=== PATIENT | male | born 1945 | race Caucasian/White ===

== ENCOUNTER 2017-07-19 07:18 | Inpatient (IN) | payer MEDICARE, BC ==
[2017-07-19] MEDS ORDERED: Ondansetron 4 MG Tab.DIS PO ONE (07:57)
--- NOTE | 2017-07-19 08:03 | EDM.PDOC ---
ED HPI GENERAL MEDICAL PROBLEM - General Chief Complaint: General Stated Complaint: WEAK, HIGH BLOOD SUGAR THIS AM Time Seen by Provider: 07/19/17 07:45 Source of Information: Reports: Patient, Family, Old Records, RN History Limitations: Reports: No Limitations - History of Present Illness INITIAL COMMENTS - FREE TEXT/NARRATIVE: 72 yo male presents with a complaint of chills, feeling warm, nausea, and weakness that began about midnight. Is also dizzy without vertigo. Has not vomited or taken anything for a fever. Has a tender lump behind his L ear as his only localizing complaint. No [place], cough, abdominal pain, or dysuria. Did have nocturia x 5 last night, normally x 3. Fell without injury early this morning and it took a long time for him to be able to get up again. Onset: Today Onset Date: 07/19/17 Onset Time: 00:00 Duration: Hour(s): Location: Reports: Generalized Quality: Reports: Other (Tender lump behind the L ear. ) Severity: Mild Improves with: Reports: None Worsens with: Reports: Other (unknown) Context: Reports: Other (unknown) Associated Symptoms: Reports: Fever/Chills, Nausea/Vomiting (no vomiting), Weakness. 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: Other (see below) (none) - Related Data Allergies Allergy/AdvReac Type Severity Reaction Status Date / Time No Known Allergies Allergy Verified 07/19/17 07:23 Home Meds: Home Meds Aspirin [Children's Aspirin] 81 mg PO DAILY 01/27/15 [History] Lisinopril [Lisinopril] 10 mg PO DAILY 01/27/15 [History] [place]-3 Fatty Acids [Fish Oil] 300 mg PO DAILY 01/27/15 [History] Simvastatin [Simvastatin] 20 mg PO DAILY 01/27/15 [History] metFORMIN HCl [Metformin HCl] 1,000 mg PO BID 01/27/15 [History] Past Medical History HEENT History: Reports: Impaired Vision Cardiovascular History: Reports: High Cholesterol, Hypertension Social & Family History - Family History Family Medical History: Noncontributory - Tobacco Use Smoking Status *Q: Former Smoker Years of Tobacco use: 30 Packs/Tins Daily: 1 Used Tobacco, but Quit: Yes Month Tobacco Last Used: 10 years Second Hand Smoke Exposure: No - Caffeine Use Caffeine Use: Reports: Coffee - Alcohol Use Days Per Week of Alcohol Use: 2 Number of Drinks Per Day: 2 Total Drinks Per Week: 4 - Recreational Drug Use Recreational Drug Use: No ED ROS GENERAL - Review of Systems Review Of Systems: See Below Constitutional: Reports: Chills, Weakness. Denies: Fever HEENT: Reports: Ear Pain (behind the L ear) Respiratory: Reports: No Symptoms Cardiovascular: Reports: Lightheadedness Endocrine: Reports: High Glucose (203 glucose this am, normally runs about 120 in the morning.) GI/Abdominal: Reports: No Symptoms : Reports: Other (nocturia last night worse than normal) Musculoskeletal: Reports: No Symptoms Skin: Reports: No Symptoms Neurological: Reports: Weakness (generalized.) Psychiatric: Reports: No Symptoms ED EXAM, GENERAL - Physical Exam Exam: See Below Exam Limited By: No Limitations General Appearance: Alert, WD/WN, No Apparent Distress Eye Exam: Bilateral Eye: Normal Inspection, PERRL Ears: Normal External Exam, Hearing Loss, Other (Hearing aid in R ear today only. L auricle slightly swollen, tender lymph node behind the L auricle.) Ear Exam: Right Ear: Auricle Normal (L is slightly swollen), Canal Normal (L canal looks slightly swollen), TM normal (L TM not visible due to canal swelling ) Nose: Normal Inspection, Normal Mucosa Throat/Mouth: Normal Inspection, Normal Lips, Normal Teeth, Normal Oropharynx, Normal Voice, No Airway Compromise Head: Atraumatic, Normocephalic Neck: Normal Inspection, Supple, Non-Tender Respiratory/Chest: No Respiratory Distress, Lungs Clear, Normal Breath Sounds, No Accessory Muscle Use Cardiovascular: Regular Rate, Rhythm, No Edema GI/Abdominal: Normal Bowel Sounds, Soft, Non-Tender, No Distention Back Exam: Normal Inspection. No: CVA Tenderness (R), CVA Tenderness (L) Extremities: Normal Inspection, Normal Range of Motion, Non-Tender, No Pedal Edema Neurological: Alert, Oriented, CN II-XII Intact, Normal Cognition, No Motor/ Sensory Deficits Psychiatric: Normal Affect, Normal Mood Skin Exam: Warm, Dry, Intact, Normal Color, No Rash Lymphatic: Other (Tender lymph node behind the L auricle.) Course - Vital Signs Last Recorded V/S: Last Vital Signs Temp 37.3 C 07/19/17 08:45 Pulse 100 07/19/17 09:40 Resp 19 07/19/17 09:40 BP 111/69 07/19/17 09:40 Pulse Ox 95 07/19/17 09:40 Orthostatic Blood Pressure [ 145/84 Standing] Orthostatic Blood Pressure [ 143/76 Sitting] Orthostatic Blood Pressure [ 143/76 Supine] - Orders/Labs/Meds Orders: Active Orders 24 hr Category Date Time Status Cardiac Monitoring [RC] .As Directed Care 07/19/17 07:54 Active Orthostatic Vital Signs [RC] ASDIRECTED Care 07/19/17 07:54 Active CULTURE BLOOD [BC] Urgent Lab 07/19/17 08:55 Received CULTURE BLOOD [BC] Urgent Lab 07/19/17 09:00 Received CULTURE URINE [RM] Stat Lab 07/19/17 07:31 Received Blood Culture x2 Reflex Set [OM.PC] Urgent Oth 07/19/17 08:51 Ordered Labs: Laboratory Tests 07/19/17 07/19/17 07/19/17 Range/Units 07:31 08:04 08:04 WBC 12.3 H (4.5-12.0) X10-3/uL RBC 4.60 (4.30-5.75) x10(6)uL Hgb 14.2 (11.5-15.5) g/dL Hct 41.9 (30.0-51.3) % MCV 90.9 (80-96) fL MCH 30.8 (27.7-33.6) pg MCHC 33.8 (32.2-35.4) g/dL RDW 13.0 (11.5-15.5) % Plt Count 173 (125-369) X10(3)uL Sodium 131 L (135-145) mmol/L Potassium 4.3 (3.5-5.3) mmol/L Chloride 97 L (100-110) mmol/L Carbon Dioxide 24 (23-29) mmol/L BUN 24 H (8-23) mg/dL Creatinine 1.2 (0.6-1.3) mg/dL Est Cr Clr Drug Dosing 59.26 mL/min Estimated GFR (MDRD) 60 (>60) BUN/Creatinine Ratio 20.0 (9-20) Glucose 206 H (80-116) mg/dL Lactic Acid (0.5-2.2) mmol/L Calcium 9.0 (8.6-10.2) mg/dL Total Bilirubin 1.0 (0.1-1.3) mg/dL AST 21 (5-27) IU/L ALT 22 D (14-26) IU/L Alkaline Phosphatase 53 L (56-112) IU/L C-Reactive Protein 1.0 (0.0-1.0) mg/dL Total Protein 7.7 (6.0-8.0) g/dL Albumin 4.4 (3.2-4.6) g/dL Globulin 3.3 g/dL Albumin/Globulin Ratio 1.3 Urine Color Yellow (YELLOW) Urine Appearance Clear (CLEAR) Urine pH 8.0 H (5.0-6.5) Ur Specific [place] 1.015 (1.010-1.025) Urine Protein 100 H (NEGATIVE) mg/dL Urine Glucose (UA) Normal (NEGATIVE) mg/dL Urine Ketones Negative (NEGATIVE) mg/dL Urine Occult Blood Trace (NEGATIVE) Urine Nitrite Negative (NEGATIVE) Urine Bilirubin Negative (NEGATIVE) Urine Urobilinogen Normal (NEGATIVE) mg/dL Ur Leukocyte Esterase Negative (NEGATIVE) Urine RBC 10-20 H (0) Urine WBC 0-5 (0) Ur Squamous Epith Cells Few H (NS,R,O) Urine Bacteria Few H (NS) 07/19/17 Range/Units 08:04 WBC (4.5-12.0) X10-3/uL RBC (4.30-5.75) x10(6)uL Hgb (11.5-15.5) g/dL Hct (30.0-51.3) % MCV (80-96) fL MCH (27.7-33.6) pg MCHC (32.2-35.4) g/dL RDW (11.5-15.5) % Plt Count (125-369) X10(3)uL Sodium (135-145) mmol/L Potassium (3.5-5.3) mmol/L Chloride (100-110) mmol/L Carbon Dioxide (23-29) mmol/L BUN (8-23) mg/dL Creatinine (0.6-1.3) mg/dL Est Cr Clr Drug Dosing mL/min Estimated GFR (MDRD) (>60) BUN/Creatinine Ratio (9-20) Glucose (80-116) mg/dL Lactic Acid 1.2 (0.5-2.2) mmol/L Calcium (8.6-10.2) mg/dL Total Bilirubin (0.1-1.3) mg/dL AST (5-27) IU/L ALT (14-26) IU/L Alkaline Phosphatase (56-112) IU/L C-Reactive Protein (0.0-1.0) mg/dL Total Protein (6.0-8.0) g/dL Albumin (3.2-4.6) g/dL Globulin g/dL Albumin/Globulin Ratio Urine Color (YELLOW) Urine Appearance (CLEAR) Urine pH (5.0-6.5) Ur Specific [place] (1.010-1.025) Urine Protein (NEGATIVE) mg/dL Urine Glucose (UA) (NEGATIVE) mg/dL Urine Ketones (NEGATIVE) mg/dL Urine Occult Blood (NEGATIVE) Urine Nitrite (NEGATIVE) Urine Bilirubin (NEGATIVE) Urine Urobilinogen (NEGATIVE) mg/dL Ur Leukocyte Esterase (NEGATIVE) Urine RBC (0) Urine WBC (0) Ur Squamous Epith Cells (NS,R,O) Urine Bacteria (NS) Meds: Medications Discontinued Medications Generic Name Dose Route Start Last Admin Trade Name Freq PRN Reason Stop Dose Admin Acetaminophen 1,000 mg 07/19/17 08:46 07/19/17 08:51 Tylenol Extra Strength PO 07/19/17 08:47 1,000 mg ONETIME ONE Administration Sodium Chloride 1,000 mls @ 1,000 mls/hr 07/19/17 08:17 07/19/17 08:43 Normal Saline IV 07/19/17 09:16 1,000 mls/hr .BOLUS ONE Administration Ceftriaxone Sodium 2 gm/ 100 mls @ 200 mls/hr 07/19/17 08:43 07/19/17 09:04 Sodium Chloride IV 07/19/17 09:12 200 mls/hr ONETIME ONE Administration Ondansetron HCl 4 mg 07/19/17 07:57 07/19/17 08:06 Zofran Odt PO 07/19/17 07:58 4 mg ONETIME ONE Administration Trimethoprim/Sulfamethoxazole 1 tab 07/19/17 08:44 07/19/17 08:51 Septra Ds PO 07/19/17 08:45 1 tab ONETIME ONE Administration Departure - Departure Time of Disposition: 10:15 Disposition: Refer to Observation Condition: Fair Clinical Impression: Cellulitis diffuse, face - Discharge Information Referrals: PCP,Unknown [Primary Care Provider] - Forms: ED Department Discharge - My Orders Last 24 Hours: My Active Orders 07/19/17 07:31 CULTURE URINE [RM] Stat 07/19/17 07:54 Cardiac Monitoring [RC] .As Directed Orthostatic Vital Signs [RC] ASDIRECTED 07/19/17 08:51 Blood Culture x2 Reflex Set [OM.PC] Urgent 07/19/17 08:55 CULTURE BLOOD [BC] Urgent 07/19/17 09:00 CULTURE BLOOD [BC] Urgent - Assessment/Plan Last 24 Hours: My Active Orders 07/19/17 07:31 CULTURE URINE [RM] Stat 07/19/17 07:54 Cardiac Monitoring [RC] .As Directed Orthostatic Vital Signs [RC] ASDIRECTED 07/19/17 08:51 Blood Culture x2 Reflex Set [OM.PC] Urgent 07/19/17 08:55 CULTURE BLOOD [BC] Urgent 07/19/17 09:00 CULTURE BLOOD [BC] Urgent
[2017-07-19] MEDS ORDERED: Sodium Chloride 0.9% 1,000 ML IV ONE (08:17)
[2017-07-19] MEDS ORDERED: cefTRIAXone 2 GM in Sodium Chloride 0.9% 100 ML IV ONE (08:43)
[2017-07-19] MEDS ORDERED: Sulfamethoxazole/Trimethoprim 800-160 MG Tab PO ONE (08:44)
[2017-07-19] MEDS ORDERED: Acetaminophen 500 MG Tab PO ONE (08:46)
[2017-07-19] MEDS ORDERED: Polyethylene Glycol 3350 Powder 17 GM Packet PO PRN (10:09)
[2017-07-19] MEDS ORDERED: Ondansetron 4 MG Tab.DIS PO PRN (10:09)
[2017-07-19] MEDS: Sodium Chloride 0.9% 1,000 ML IV SCH ×2 (10:53→17:38)
--- NOTE | 2017-07-19 12:57 | PCM.HP ---
H&P History of Present Illness - General Date of Service: 07/19/17 Admit Problem/Dx: Admission Diagnosis/Problem Admission Diagnosis/Problem Cellulitis Source of Information: Patient History Limitations: Reports: No Limitations - History of Present Illness Initial Comments - Free Text/Narative: This is a 72-year-old male patient with type 2 diabetes states that last night he started having chills. He also had a little bit of fever He states he had to go internal the temperature in his room. He felt weak and they tried to get up at 6 AM and fell. It took him a half an hour to get up. He called the grandson and they brought to the ER. He says he has some left your swelling and lump behind the left ear. He states his blood sugars are normal 105-1:15 in a.m. He woke up his blood sugars over 200 this morning. He denies nasal congestion, sore throat, headaches, abdominal pain, cough, shortness of breath, dysuria, pyuria, hematuria, diarrhea. - Related Data Allergies/Adverse Reactions: Allergies Allergy/AdvReac Type Severity Reaction Status Date / Time No Known Allergies Allergy Verified 07/19/17 07:23 Home Medications: Home Meds Aspirin [Children's Aspirin] 81 mg PO DAILY 01/27/15 [History] Lisinopril [Lisinopril] 10 mg PO DAILY 01/27/15 [History] [place]-3 Fatty Acids [Fish Oil] 300 mg PO DAILY 01/27/15 [History] Simvastatin [Simvastatin] 20 mg PO DAILY 01/27/15 [History] metFORMIN HCl [Metformin HCl] 1,000 mg PO BID 01/27/15 [History] Past Medical History HEENT History: Reports: Impaired Vision Cardiovascular History: Reports: High Cholesterol, Hypertension Respiratory History: Reports: Pneumonia, Recurrent Musculoskeletal History: Reports: Back Pain, Chronic Other Musculoskeletal History: was seen at the ED before for backpain. Endocrine/Metabolic History: Reports: Diabetes, Type II - Past Surgical History Musculoskeletal Surgical History: Reports: Other (See Below) Other Musculoskeletal Surgeries/Procedures:: back surgery Social & Family History - Family History Family Medical History: Noncontributory - Tobacco Use Smoking Status *Q: Former Smoker Years of Tobacco use: 30 Packs/Tins Daily: 1 Used Tobacco, but Quit: Yes Month Tobacco Last Used: 2006 Second Hand Smoke Exposure: No - Caffeine Use Caffeine Use: Reports: Coffee - Alcohol Use Days Per Week of Alcohol Use: 2 Number of Drinks Per Day: 2 Total Drinks Per Week: 4 - Recreational Drug Use Recreational Drug Use: No H&P Review of Systems - Review of Systems: Review Of Systems: See Below General: Reports: Fever, Chills, Weakness HEENT: Reports: No Symptoms Pulmonary: Reports: No Symptoms Cardiovascular: Reports: No Symptoms Gastrointestinal: Reports: No Symptoms Genitourinary: Reports: No Symptoms Musculoskeletal: Reports: No Symptoms Skin: Reports: Other (See history of present illness) Psychiatric: Reports: No Symptoms Neurological: Reports: No Symptoms Hematologic/Lymphatic: Reports: No Symptoms Immunologic: Reports: No Symptoms Exam - Exam Exam: See Below - Vital Signs Vital Signs: Last Vital Signs Temp 98.9 F 07/19/17 10:30 Pulse 100 07/19/17 10:30 Resp 18 07/19/17 10:30 BP 110/56 L 07/19/17 10:30 Pulse Ox 95 07/19/17 10:30 Weight: 245 lb - Exam General: Alert, Oriented, Cooperative HEENT: Conjunctiva Clear, Hearing Intact (Hearing aids), Mucosa Moist & [place], Nares Patent, Other (Right TMs clear. Some swelling in the left canal and some swelling of the ear so I can see the eardrum.) Neck: Other (Small subcutaneous his nodule just below the left ear left side) Lungs: Clear to Auscultation, Normal Respiratory Effort Cardiovascular: Regular Rate, Regular Rhythm. No: Systolic Murmur, Diastolic Murmur GI/Abdominal Exam: Normal Bowel Sounds, Soft, Non-Tender, No Organomegaly, No Distention, No Abnormal Bruit, No Mass Back Exam: Normal Inspection, Full Range of Motion, NT Extremities: No Pedal Edema Skin: Warm, Dry, Intact, Other (Mild swelling and maybe a little erythema of the left ear) Neurological: Normal Speech, Normal Tone Neuro Extensive - Mental Status: Alert, Oriented x3, Normal Mood/Affect, Normal Cognition - Patient Data Lab Results Last 24 hrs: Laboratory Results - last 24 hr 07/19/17 Range/Units 11:29 POC Glucose 168 H (80-116) mg/dL Result Diagrams: 07/19/17 08:04 07/19/17 08:04 *Q Meaningful Use (ADM) - VTE *Q VTE Criteria *Q: - Stroke *Q Stroke Criteria *Q: - AMI *Q AMI Criteria *Q: - Problem List (1) Cellulitis diffuse, face SNOMED Code(s): 054364823 ICD Code: L03.211 - CELLULITIS OF FACE Status: Acute Current Visit: Yes Problem List Initiated/Reviewed/Updated: Yes Orders Last 24hrs: Active Orders 24 hr Category Date Time Status Patient Status [ADT] Routine ADT 07/19/17 10:09 Active Accu Check [Blood Glucose Check, Bedside] [RC] TIDAC Care 07/19/17 11:08 Active CPAP Adult [RT BiPAP/CPAP] [RC] ASDIRECTED Care 07/19/17 10:15 Active Height and Weight [RC] 07 Care 07/19/17 10:09 Active Intake and Output [RC] ,, Care 07/19/17 10:10 Active Oxygen Therapy [RC] PRN Care 07/19/17 10:09 Active Up With Assistance [RC] ,,, Care 07/19/17 10:09 Active VTE/DVT Education [RC] Per Unit Routine Care 07/19/17 10:09 Active Vital Signs [RC] Q4H Care 07/19/17 10:09 Active Consistent Carbohydrate Diet [DIET] Diet 07/19/17 Breakfast Ordered Chest 2V [CR] Routine Exams 07/19/17 10:09 Taken Acetaminophen [Tylenol] Med 07/19/17 10:09 Active 650 mg PO Q4H PRN Ondansetron [Zofran ODT] Med 07/19/17 10:09 Active 4 mg PO Q6H PRN Polyethylene Glycol 3350 [MiraLAX] Med 07/19/17 10:09 Active 17 gm PO DAILY PRN Sodium Chloride 0.9% [Normal Saline] 1,000 ml Med 07/19/17 10:15 Active IV ASDIRECTED Sodium Chloride 0.9% [Saline Flush] Med 07/19/17 10:09 Active 10 ml FLUSH ASDIRECTED PRN Sulfamethoxazole/Trimethoprim [Septra DS] Med 07/19/17 21:00 Active 1 tab PO BID cefTRIAXone [Rocephin] 2 gm Med 07/20/17 09:00 Active Sodium Chloride 0.9% [Normal Saline] 100 ml IV Q24H Antiembolic Hose [OM.PC] Per Unit Routine Oth 07/19/17 10:11 Ordered Peripheral IV Insertion Adult [OM.PC] Routine Oth 07/19/17 10:09 Ordered Resuscitation Status Routine Resus Stat 07/19/17 10:09 Ordered Medication Orders Acetaminophen (Tylenol) 650 mg PO Q4H PRN PRN Reason: Pain (Mild 1-3)/fever Ceftriaxone Sodium 2 gm/ (Sodium Chloride) 100 mls @ 200 mls/hr IV Q24H TERENCE Sodium Chloride (Normal Saline) 1,000 mls @ 125 mls/hr IV ASDIRECTED [facility] Last Admin: 07/19/17 10:53 Dose: 125 mls/hr Ondansetron HCl (Zofran Odt) 4 mg PO Q6H PRN PRN Reason: nausea, able to take PO Polyethylene Glycol (Miralax) 17 gm PO DAILY PRN PRN Reason: Constipation Sodium Chloride (Saline Flush) 10 ml FLUSH ASDIRECTED PRN PRN Reason: Keep Vein Open Trimethoprim/Sulfamethoxazole (Septra Ds) 1 tab PO BID [facility] Assessment/Plan Comment:: . Admit for observation. 2. Antibiotics. 3. Continue home medications. 4. Check blood sugars twice a day. 5. Diabetic diet. 6 Follow-up chest x-ray.
--- NOTE | 2017-07-19 13:18 | CR ---
INDICATION: Leukocytosis, weakness. CHEST: Two PA views and a lateral view of the chest were obtained 07/19/2017. A small nodular density in the right mid lung field laterally likely represents a granuloma. If old films are available for comparison, they may be helpful in excluding neoplasia. In the absence of old images for comparison, CT examination without and possibly with IV contrast, or possibly simply a repeat chest x-ray in 3 months may be helpful also. The heart is normal in size and shape. The aorta is tortuous and calcified in the arch area. Bridging hyperostotic changes are noted of moderate to moderately severe degree , most prominent anteriorly in the mid to lower thoracic spine. A somewhat flowing appearance of these changes raises question of DISH. Slightly prominent AP diameter and slightly flattened diaphragm leaves with interdigitation of the right hemidiaphragm leaf suggests the possibility of COPD additionally. A definite active infiltrate or effusion was not identified. There is suggestion of a linear density at the left lung base near the costophrenic angle, which may be fibrotic in nature, or possibly on the basis of linear atelectasis. IMPRESSION: 1. No definite acute process - minimal linear atelectatic changes may be present at the left costophrenic angle. 2. Probable granuloma right mid lung field. However, comparison with old studies recommended to confirm stability. If no old films are available for comparison, either follow-up chest x-ray at [address] initially without IV contrast may be helpful for further evaluation. 3. ASD aorta. 4. COPD. 5. Possible DISH. MTDD
[2017-07-19] MEDS: Acetaminophen 325 MG Tab PO PRN ×2 (15:31→21:01)
[2017-07-19] MEDS ORDERED: Sulfamethoxazole/Trimethoprim 800-160 MG Tab PO SCH (21:00)
[2017-07-19] MEDS ORDERED: Ibuprofen 800 MG Tab PO PRN (22:57)
[2017-07-20] MEDS: Sodium Chloride 0.9% 1,000 ML IV SCH (01:39)
[2017-07-20] MEDS ORDERED: Non-Formulary Medication 1 Each (Omega-3 Fatty Acids [Fish Oil] 300 MG) PO SCH (09:00)
[2017-07-20] MEDS ORDERED: cefTRIAXone 2 GM in Sodium Chloride 0.9% 100 ML IV SCH (09:00)
[2017-07-20] MEDS ORDERED: cefTRIAXone 1,000 MG in Sodium Chloride 0.9% 50 ML IV SCH ×2 (09:00→13:00)
[2017-07-20] MEDS ORDERED: metFORMIN 1,000 MG Tab PO SCH (09:00)
--- NOTE | 2017-07-20 09:01 | PCM.PN ---
- General Info Date of Service: 07/20/17 Admission Dx/Problem (Free Text): He complains of left ear pain and neck pain. No improvement since last night. He spiked a temperature 101.5 overnight, accompanied by chills and rigors. He complains of no headache saw throat shortness of breath fever cough. Yesterday 2 diabetes that is well controlled. He lives alone and is a nonsmoker. Functional Status: Reports: Pain Controlled, Tolerating Diet - Patient Data Vitals - Most Recent: Last Vital Signs Temp 98.7 F 07/20/17 04:45 Pulse 101 H 07/20/17 04:45 Resp 20 07/20/17 04:45 BP 123/71 07/20/17 04:45 Pulse Ox 95 07/20/17 04:45 Weight - Most Recent: 116.981 kg I&O - Last 24 Hours: Intake & Output 07/19/17 07/20/17 07/20/17 22:59 06:59 14:59 Intake Total 1119 1312 Output Total 200 Balance 919 1312 Lab Results Last 24 Hours: Laboratory Results - last 24 hr 07/19/17 07/19/17 07/20/17 Range/Units 11:29 18:33 05:57 WBC (4.5-12.0) X10-3/uL RBC (4.30-5.75) x10(6)uL Hgb (11.5-15.5) g/dL Hct (30.0-51.3) % MCV (80-96) fL MCH (27.7-33.6) pg MCHC (32.2-35.4) g/dL RDW (11.5-15.5) % Plt Count (125-369) X10(3)uL MPV (7.4-10.4) fL Neut % (Auto) (46-82) % Lymph % (Auto) (13-37) % [place] % (Auto) (4-12) % Eos % (Auto) (1.0-5.0) % Baso % (Auto) (0-2) % Neut # (Auto) (1.6-8.3) # Lymph # (Auto) (0.6-5.0) # [place] # (Auto) (0.0-1.3) # Eos # (Auto) (0.0-0.8) # Baso # (Auto) (0.0-0.2) # Sodium (135-145) mmol/L Potassium (3.5-5.3) mmol/L Chloride (100-110) mmol/L Carbon Dioxide (23-29) mmol/L BUN (8-23) mg/dL Creatinine (0.6-1.3) mg/dL Est Cr Clr Drug Dosing mL/min Estimated GFR (MDRD) (>60) BUN/Creatinine Ratio (9-20) Glucose (80-116) mg/dL POC Glucose 168 H 203 H 161 H (80-116) mg/dL Calcium (8.6-10.2) mg/dL 07/20/17 07/20/17 Range/Units 06:25 06:25 WBC 8.0 (4.5-12.0) X10-3/uL RBC 3.87 L (4.30-5.75) x10(6)uL Hgb 12.2 (11.5-15.5) g/dL Hct 34.9 (30.0-51.3) % MCV 90.3 (80-96) fL MCH 31.5 (27.7-33.6) pg MCHC 34.8 (32.2-35.4) g/dL RDW 13.4 (11.5-15.5) % Plt Count 121 L (125-369) X10(3)uL MPV 8.1 (7.4-10.4) fL Neut % (Auto) 83.9 H (46-82) % Lymph % (Auto) 7.2 L (13-37) % [place] % (Auto) 8.5 (4-12) % Eos % (Auto) 0 L (1.0-5.0) % Baso % (Auto) 0 (0-2) % Neut # (Auto) 6.6 (1.6-8.3) # Lymph # (Auto) 0.6 (0.6-5.0) # [place] # (Auto) 0.7 (0.0-1.3) # Eos # (Auto) 0.0 (0.0-0.8) # Baso # (Auto) 0.0 (0.0-0.2) # Sodium 134 L (135-145) mmol/L Potassium 4.0 (3.5-5.3) mmol/L Chloride 104 D (100-110) mmol/L Carbon Dioxide 24 (23-29) mmol/L BUN 19 (8-23) mg/dL Creatinine 1.2 (0.6-1.3) mg/dL Est Cr Clr Drug Dosing 59.26 mL/min Estimated GFR (MDRD) 60 (>60) BUN/Creatinine Ratio 15.8 (9-20) Glucose 156 H (80-116) mg/dL POC Glucose (80-116) mg/dL Calcium 8.1 L (8.6-10.2) mg/dL Med Orders - Current: Current Medications Acetaminophen (Tylenol) 650 mg PO Q4H PRN PRN Reason: Pain (Mild 1-3)/fever Last Admin: 07/19/17 21:01 Dose: 650 mg Aspirin (Aspirin) 81 mg PO DAILY [facility] Sodium Chloride (Normal Saline) 1,000 mls @ 125 mls/hr IV ASDIRECTED [facility] Last Admin: 07/20/17 01:39 Dose: 125 mls/hr Ceftriaxone Sodium 1,000 mg/ (Sodium Chloride) 50 mls @ 100 mls/hr IV Q24H [facility] Vancomycin HCl 1,000 mg/ (Sodium Chloride) 250 mls @ 167 mls/hr IV Q12H [facility] Ibuprofen (Motrin) 800 mg PO Q6H PRN PRN Reason: Fever Insulin Aspart (Novolog) 0 unit SUBCUT TIDMEALS [facility] PRN Reason: Protocol Lisinopril (Prinivil) 10 mg PO DAILY [facility] Metformin HCl (Glucophage) 1,000 mg PO BID [facility] Non-Formulary Medication ([place]-3 Fatty Acids [Fish Oil]) 300 mg PO DAILY [facility] Ondansetron HCl (Zofran Odt) 4 mg PO Q6H PRN PRN Reason: nausea, able to take PO Last Admin: 07/19/17 15:31 Dose: 4 mg Polyethylene Glycol (Miralax) 17 gm PO DAILY PRN PRN Reason: Constipation Simvastatin (Zocor) 20 mg PO DAILY [facility] Sodium Chloride (Saline Flush) 10 ml FLUSH ASDIRECTED PRN PRN Reason: Keep Vein Open Discontinued Medications Acetaminophen (Tylenol Extra Strength) 1,000 mg PO ONETIME ONE Stop: 07/19/17 08:47 Last Admin: 07/19/17 08:51 Dose: 1,000 mg Sodium Chloride (Normal Saline) 1,000 mls @ 1,000 mls/hr IV .BOLUS ONE Stop: 07/19/17 09:16 Last Admin: 07/19/17 08:43 Dose: 1,000 mls/hr Ceftriaxone Sodium 2 gm/ (Sodium Chloride) 100 mls @ 200 mls/hr IV ONETIME ONE Stop: 07/19/17 09:12 Last Admin: 07/19/17 09:04 Dose: 200 mls/hr Ceftriaxone Sodium 2 gm/ (Sodium Chloride) 100 mls @ 200 mls/hr IV Q24H [facility] Ondansetron HCl (Zofran Odt) 4 mg PO ONETIME ONE Stop: 07/19/17 07:58 Last Admin: 07/19/17 08:06 Dose: 4 mg Trimethoprim/Sulfamethoxazole (Septra Ds) 1 tab PO ONETIME ONE Stop: 07/19/17 08:45 Last Admin: 07/19/17 08:51 Dose: 1 tab Trimethoprim/Sulfamethoxazole (Septra Ds) 1 tab PO BID [facility] Last Admin: 07/19/17 20:52 Dose: 1 tab - Exam Quality Assessment: No: Supplemental Oxygen General: Alert, Oriented, Severe Distress HEENT: Pupils Equal, Mucous Membr. Moist/[place], Other (Edemotous canal on the left,tender pinna,red.) Neck: Supple, Other (Mass left neck,? Abscess) Lungs: Clear to Auscultation, Normal Respiratory Effort Cardiovascular: Regular Rate, Regular Rhythm - Problem List & Annotations (1) Otitis externa SNOMED Code(s): 4228981 Code(s): H60.90 - UNSPECIFIED OTITIS EXTERNA, UNSPECIFIED EAR Status: Acute Current Visit: Yes Qualifiers: Otitis externa type: malignant Chronicity: acute Laterality: left Qualified Code(s): H60.22 - Malignant otitis externa, left ear (2) Pinna cellulitis SNOMED Code(s): 193650707 Code(s): H60.10 - CELLULITIS OF EXTERNAL EAR, UNSPECIFIED EAR Status: Acute Current Visit: Yes Qualifiers: Laterality: left Qualified Code(s): H60.12 - Cellulitis of left external ear (3) Abscess of neck SNOMED Code(s): 9518424 Code(s): L02.11 - CUTANEOUS ABSCESS OF NECK Status: Acute Current Visit: Yes (4) Diabetes type 2, controlled SNOMED Code(s): 39605666 Code(s): E11.9 - TYPE 2 DIABETES MELLITUS WITHOUT COMPLICATIONS Status: Chronic Current Visit: Yes Qualifiers: Diabetes mellitus complication status: without complication Diabetes mellitus rodent exterminator insulin use: without senior care use Qualified Code(s): E11.9 - Type 2 diabetes mellitus without complications - Problem List Review Problem List Initiated/Reviewed/Updated: Yes - My Orders Last 24 Hours: My Active Orders 07/20/17 08:50 Soft Tissue Neck w Cont [CT] Routine 07/20/17 09:00 Insulin Aspart [NovoLOG] See Protocol SUBCUT TIDMEALS Vancomycin 1,000 mg Sodium Chloride 0.9% [Normal Saline] 250 ml IV Q12H 07/21/17 05:11 BASIC METABOLIC PANEL,BMP [CHEM] AM C-REACTIVE PROTEIN [CHEM] AM CBC WITH AUTO DIFF [HEME] AM - Plan Plan:: . Have discontinued Bactrim in favor of vancomycin IV. I will also obtain a CT soft tissue of the neck to rule out an abscess. Ciprofloxacin HC will be given to the Ear locally to treat the otitis externa. I'll keep a tight glycemic control with SSI ,but Hep-Lock his IV. I'll keep him for today possibly tomorrow for IV antibiotics and I feel that he qualifies for inpatient treatment at this time.
[2017-07-20] MEDS: Vancomycin 750 MG, Vancomycin 1,000 MG in Sodium Chloride 0.9% 500 ML IV SCH ×2 (10:37→21:35)
[2017-07-20] MEDS ORDERED: Iopamidol 755 Mg/ML 75 ML Bottle IV ONE (10:41)
[2017-07-20] MEDS: Aspirin 81 MG Tab.Chew PO SCH (11:17)
[2017-07-20] MEDS: Hydrocortisone/Neomycin/Polymyxin B Otic Susp 10 ML Bottle EARLF SCH ×4 (11:17→20:43)
[2017-07-20] MEDS: Insulin Aspart 100 Units/ML 3 ML Pen SUBCUT SCH ×3 (11:19→17:36)
[2017-07-20] MEDS: Lisinopril 10 MG Tab PO SCH (11:20)
[2017-07-20] MEDS: Sodium Chloride 0.9% 10 ML Syringe FLUSH PRN (13:12)
[2017-07-20] MEDS ORDERED: Sodium Chloride 0.9% 250 ML IV SCH (16:45)
[2017-07-20] MEDS ORDERED: Simvastatin 20 MG Tab PO SCH (21:00)
[2017-07-21] MEDS: Sodium Chloride 0.9% 10 ML Syringe FLUSH PRN ×2 (00:01→10:35)
[2017-07-21] MEDS: Insulin Aspart 100 Units/ML 3 ML Pen SUBCUT SCH ×2 (07:21→11:56)
[2017-07-21 07:27] VITALS: BP 114/64
[2017-07-21] MEDS: Hydrocortisone/Neomycin/Polymyxin B Otic Susp 10 ML Bottle EARLF SCH ×2 (08:19→12:15)
[2017-07-21] MEDS: Lisinopril 10 MG Tab PO SCH (08:19)
[2017-07-21] MEDS: Aspirin 81 MG Tab.Chew PO SCH (08:19)
--- NOTE | 2017-07-21 09:21 | PCM.PN ---
- General Info Date of Service: 07/21/17 Admission Dx/Problem (Free Text): He complains of left ear pain and neck pain. No improvement since last night. He spiked a temperature 101.5 overnight, accompanied by chills and rigors. He complains of no headache saw throat shortness of breath fever cough. Yesterday 2 diabetes that is well controlled. He lives alone and is a nonsmoker. Subjective Update: Patient said the pain has improved and the swelling is down. His CAT scan showed swelling under left mastoid area resting a possible neoplasm and recommended that we do an MRI. He has no fever chills no headache Functional Status: Reports: Pain Controlled - Review of Systems General: Reports: No Symptoms HEENT: Reports: No Symptoms Pulmonary: Reports: No Symptoms Cardiovascular: Reports: No Symptoms Gastrointestinal: Reports: No Symptoms Genitourinary: Reports: No Symptoms Musculoskeletal: Reports: No Symptoms Skin: Reports: No Symptoms Neurological: Reports: No Symptoms Psychiatric: Reports: No Symptoms - Patient Data Vitals - Most Recent: Last Vital Signs Temp 99.4 F 07/21/17 07:27 Pulse 63 07/21/17 07:27 Resp 12 07/21/17 07:27 BP 114/64 07/21/17 08:19 Pulse Ox 97 07/21/17 07:28 Weight - Most Recent: 117.571 kg I&O - Last 24 Hours: Intake & Output 07/20/17 07/21/17 07/21/17 22:59 06:59 14:59 Intake Total 400 830 Balance 400 830 Lab Results Last 24 Hours: Laboratory Results - last 24 hr 07/20/17 07/20/17 07/21/17 Range/Units 12:31 17:00 05:56 WBC (4.5-12.0) X10-3/uL RBC (4.30-5.75) x10(6)uL Hgb (11.5-15.5) g/dL Hct (30.0-51.3) % MCV (80-96) fL MCH (27.7-33.6) pg MCHC (32.2-35.4) g/dL RDW (11.5-15.5) % Plt Count (125-369) X10(3)uL MPV (7.4-10.4) fL Neut % (Auto) (46-82) % Lymph % (Auto) (13-37) % [place] % (Auto) (4-12) % Eos % (Auto) (1.0-5.0) % Baso % (Auto) (0-2) % Neut # (Auto) (1.6-8.3) # Lymph # (Auto) (0.6-5.0) # [place] # (Auto) (0.0-1.3) # Eos # (Auto) (0.0-0.8) # Baso # (Auto) (0.0-0.2) # Sodium (135-145) mmol/L Potassium (3.5-5.3) mmol/L Chloride (100-110) mmol/L Carbon Dioxide (23-29) mmol/L BUN (8-23) mg/dL Creatinine (0.6-1.3) mg/dL Est Cr Clr Drug Dosing mL/min Estimated GFR (MDRD) (>60) BUN/Creatinine Ratio (9-20) Glucose (80-116) mg/dL POC Glucose 117 H 129 H 132 H (80-116) mg/dL Calcium (8.6-10.2) mg/dL C-Reactive Protein (0.0-1.0) mg/dL 07/21/17 07/21/17 Range/Units 06:55 06:55 WBC 6.5 (4.5-12.0) X10-3/uL RBC 3.89 L (4.30-5.75) x10(6)uL Hgb 12.1 (11.5-15.5) g/dL Hct 35.6 (30.0-51.3) % MCV 91.4 (80-96) fL MCH 31.1 (27.7-33.6) pg MCHC 34.0 (32.2-35.4) g/dL RDW 13.2 (11.5-15.5) % Plt Count 126 (125-369) X10(3)uL MPV 8.1 (7.4-10.4) fL Neut % (Auto) 66.4 (46-82) % Lymph % (Auto) 17.3 (13-37) % [place] % (Auto) 13.7 H (4-12) % Eos % (Auto) 2 (1.0-5.0) % Baso % (Auto) 1 (0-2) % Neut # (Auto) 4.4 (1.6-8.3) # Lymph # (Auto) 1.1 (0.6-5.0) # [place] # (Auto) 0.9 (0.0-1.3) # Eos # (Auto) 0.1 (0.0-0.8) # Baso # (Auto) 0.0 (0.0-0.2) # Sodium 136 (135-145) mmol/L Potassium 4.1 (3.5-5.3) mmol/L Chloride 106 (100-110) mmol/L Carbon Dioxide 22 L (23-29) mmol/L BUN 15 (8-23) mg/dL Creatinine 1.0 (0.6-1.3) mg/dL Est Cr Clr Drug Dosing 71.12 mL/min Estimated GFR (MDRD) > 60 (>60) BUN/Creatinine Ratio 15.0 (9-20) Glucose 148 H (80-116) mg/dL POC Glucose (80-116) mg/dL Calcium 8.4 L (8.6-10.2) mg/dL C-Reactive Protein 9.8 H* (0.0-1.0) mg/dL Med Orders - Current: Current Medications Acetaminophen (Tylenol) 650 mg PO Q4H PRN PRN Reason: Pain (Mild 1-3)/fever Last Admin: 07/19/17 21:01 Dose: 650 mg Aspirin (Aspirin) 81 mg PO DAILY [facility] Last Admin: 07/21/17 08:19 Dose: 81 mg Vancomycin HCl 750 mg/Vancomycin HCl 1,000 mg/Sodium Chloride 500 mls @ 250 mls /hr IV Q12H [facility] Last Admin: 07/20/17 21:35 Dose: 250 mls/hr Ceftriaxone Sodium 1,000 mg/ (Sodium Chloride) 50 mls @ 100 mls/hr IV Q24H [facility] Last Admin: 07/20/17 13:11 Dose: 100 mls/hr Sodium Chloride (Normal Saline) 250 mls @ 100 mls/hr IV ASDIRECTED [facility] Last Admin: 07/20/17 21:31 Dose: 100 mls/hr Ibuprofen (Motrin) 800 mg PO Q6H PRN PRN Reason: Fever Insulin Aspart (Novolog) 0 unit SUBCUT TIDMEALS [facility] PRN Reason: Protocol Last Admin: 07/21/17 07:21 Dose: Not Given Lisinopril (Prinivil) 10 mg PO DAILY [facility] Last Admin: 07/21/17 08:19 Dose: 10 mg Metformin HCl (Glucophage) 1,000 mg PO BID [facility] Last Admin: 07/20/17 11:18 Dose: Not Given Neomycin/Polymyxin/Hydrocortisone (Cortisporin Otic Susp) 0 ml EARLF QID [facility] Stop: 07/29/17 21:01 Last Admin: 07/21/17 08:19 Dose: 4 drop Non-Formulary Medication ([place]-3 Fatty Acids [Fish Oil]) 300 mg PO DAILY [facility] Ondansetron HCl (Zofran Odt) 4 mg PO Q6H PRN PRN Reason: nausea, able to take PO Last Admin: 07/19/17 15:31 Dose: 4 mg Polyethylene Glycol (Miralax) 17 gm PO DAILY PRN PRN Reason: Constipation Simvastatin (Zocor) 20 mg PO BEDTIME [facility] Last Admin: 07/20/17 20:44 Dose: 20 mg Sodium Chloride (Saline Flush) 10 ml FLUSH ASDIRECTED PRN PRN Reason: Keep Vein Open Last Admin: 07/21/17 00:01 Dose: 10 ml Vancomycin HCl (Pharmacy To Dose - Vancomycin) 0 dose .XX ASDIRECTED [facility] Discontinued Medications Acetaminophen (Tylenol Extra Strength) 1,000 mg PO ONETIME ONE Stop: 07/19/17 08:47 Last Admin: 07/19/17 08:51 Dose: 1,000 mg Sodium Chloride (Normal Saline) 1,000 mls @ 1,000 mls/hr IV .BOLUS ONE Stop: 07/19/17 09:16 Last Admin: 07/19/17 08:43 Dose: 1,000 mls/hr Ceftriaxone Sodium 2 gm/ (Sodium Chloride) 100 mls @ 200 mls/hr IV ONETIME ONE Stop: 07/19/17 09:12 Last Admin: 07/19/17 09:04 Dose: 200 mls/hr Ceftriaxone Sodium 2 gm/ (Sodium Chloride) 100 mls @ 200 mls/hr IV Q24H [facility] Sodium Chloride (Normal Saline) 1,000 mls @ 125 mls/hr IV ASDIRECTED [facility] Last Admin: 07/20/17 01:39 Dose: 125 mls/hr Iopamidol (Isovue-370 (76%)) 75 ml IV ASDIRECTED ONE Stop: 07/20/17 10:42 Last Admin: 07/20/17 10:55 Dose: 72 ml Ondansetron HCl (Zofran Odt) 4 mg PO ONETIME ONE Stop: 07/19/17 07:58 Last Admin: 07/19/17 08:06 Dose: 4 mg Trimethoprim/Sulfamethoxazole (Septra Ds) 1 tab PO ONETIME ONE Stop: 07/19/17 08:45 Last Admin: 07/19/17 08:51 Dose: 1 tab Trimethoprim/Sulfamethoxazole (Septra Ds) 1 tab PO BID [facility] Last Admin: 07/19/17 20:52 Dose: 1 tab - Exam Quality Assessment: No: Supplemental Oxygen General: Alert, Oriented HEENT: Pupils Equal, Pupils Reactive, EOMI, Mucous Membr. Moist/[place] Neck: Supple, Other (left lymphadenopathy) Lungs: Clear to Auscultation, Normal Respiratory Effort Cardiovascular: Regular Rate, Regular Rhythm - Problem List & Annotations (1) Otitis externa SNOMED Code(s): 8775515 Code(s): H60.90 - UNSPECIFIED OTITIS EXTERNA, UNSPECIFIED EAR Status: Acute Current Visit: Yes Qualifiers: Otitis externa type: malignant Chronicity: acute Laterality: left Qualified Code(s): H60.22 - Malignant otitis externa, left ear (2) Pinna cellulitis SNOMED Code(s): 034937974 Code(s): H60.10 - CELLULITIS OF EXTERNAL EAR, UNSPECIFIED EAR Status: Acute Current Visit: Yes Qualifiers: Laterality: left Qualified Code(s): H60.12 - Cellulitis of left external ear (3) Abscess of neck SNOMED Code(s): 5138733 Code(s): L02.11 - CUTANEOUS ABSCESS OF NECK Status: Acute Current Visit: Yes (4) Diabetes type 2, controlled SNOMED Code(s): 93618913 Code(s): E11.9 - TYPE 2 DIABETES MELLITUS WITHOUT COMPLICATIONS Status: Chronic Current Visit: Yes Qualifiers: Diabetes mellitus complication status: without complication Diabetes mellitus terminal press operator insulin use: without mcfp use Qualified Code(s): E11.9 - Type 2 diabetes mellitus without complications - Problem List Review Problem List Initiated/Reviewed/Updated: Yes - My Orders Last 24 Hours: My Active Orders 07/20/17 09:15 Vancomycin Pharmacy to Dose [Pharmacy to Dose - Vancomycin] See Dose Instructions .XX ASDIRECTED 07/20/17 10:00 Vancomycin 750 mg Vancomycin 1,000 mg Sodium Chloride 0.9% [Normal Saline] 500 ml IV Q12H 07/20/17 16:45 Sodium Chloride 0.9% [Normal Saline] 250 ml IV ASDIRECTED 07/21/17 21:30 VANCOMYCIN TROUGH [CHEM] Routine - Plan Plan:: I will discharge him home on Bactrim DS, and Cipro index drops topically. I will also schedule for an MRI of his face done on an ambulatory basis, usually comes to see me in the clinic next week
[2017-07-21] MEDS: Vancomycin 750 MG, Vancomycin 1,000 MG in Sodium Chloride 0.9% 500 ML IV SCH (10:34)
--- NOTE | 2017-07-23 09:37 | DISCH ---
DISCHARGE DATE: 07/21/2017 REASON FOR ADMISSION: Cellulitis of the left ear. DISCHARGE DIAGNOSIS: 1. Left cellulitis of the pinna. 2. Malignant otitis externa. 3. Type 2 diabetes. 4. Hypertension. BRIEF HISTORY: This is a 72-year-old male who came with fever, pain in the left ear and swelling, along with decreased hearing. CT revealed swelling around the left ear, possibly due to a tumor, but could not be certain. He was given Cipro HC drops, vancomycin and Rocephin. His symptoms and swelling improved significantly. PLAN: I sent him home on Bactrim DS one tablet twice a day and Cipro HC two drops three times a day. I recommended followup in the office next week after an MRI of the face. Please note that I spent more than 35 minutes in the discharge of the patient. The rest of his home medications will be continued with the exception of metformin, which was held because of his contrast CT. This will be resumed on Sunday. /[id number] GLEN/SHANDA
== END 2017-07-21 13:05 | disposition home or self-care (01) | DRG 155 ==
LOC: FB.ED 07:18 → FB.MS 10:07 → OBSVTOIN 07-20 09:01
PROVIDERS: ADMIT Family Medicine; ATTEND Family Medicine
DX: L03.211 Cellulitis of face (principal); H60.12 Cellulitis of left external ear; H60.22 Malignant otitis externa, left ear; L02.11 Cutaneous abscess of neck; R53.1 Weakness; R50.9 Fever, unspecified; R42 Dizziness and giddiness; E11.9 Type 2 diabetes mellitus without complications; I10 Essential (primary) hypertension; Z87.891 Personal history of nicotine dependence; Z79.84 Long term (current) use of oral hypoglycemic drugs; Z79.82 Long term (current) use of aspirin; E78.00 Pure hypercholesterolemia, unspecified; H54.7 Unspecified visual loss; Z87.01 Personal history of pneumonia (recurrent); H93.8X2 Other specified disorders of left ear
CPT/HCPCS: 36415 ×2; 71020; 80048; 80053; 81001; 82962 ×3; 83605; 85025; 85027; 86140; 87040 ×2; 87086; 96361; 96365; 99285; A9270 ×9; J0696; J7030; J7040 ×4; 70491; 87088; 87186; 99219; G0378; J3370; J7050; Q9967

== ENCOUNTER 2019-10-20 06:28 | Day surgery (SDC) | payer MEDICARE, BC ==
[2019-10-20] MEDS ORDERED: fentaNYL 100 MCG/2 ML SDV IV ONE (06:29)
[2019-10-20] MEDS ORDERED: Midazolam 1 MG/ML 2 ML SDV IV ONE (06:29)
[2019-10-20] MEDS ORDERED: Sodium Chloride 0.9% 10 ML Syringe FLUSH PRN (06:45)
[2019-10-20] MEDS ORDERED: Lactated Ringers 1,000 ML IV PRN (06:45)
[2019-10-20] MEDS ORDERED: acetaZOLAMIDE 500 MG Cap.ER PO ONE (09:00)
[2019-10-20 09:49] VITALS: BP 157/66; PULSE 64
--- NOTE | 2019-10-20 11:38 | OR ---
DATE OF OPERATION: 10/20/2019 SURGEON: Ximena Fernandez MD PREOPERATIVE DIAGNOSIS: Visually significant cataract, right eye. POSTOPERATIVE DIAGNOSIS: Visually significant cataract, right eye. PROCEDURES PERFORMED: Phacoemulsification with intraocular lens placement, right eye. ASSISTANTS: None. ANESTHESIA: Local with sedation. COMPLICATIONS: None. BLOOD LOSS: None. IMPLANTS: Jose E [id number] 19.5 diopter lens implanted. CDE: 3.56. DESCRIPTION OF PROCEDURE: After risks and benefits were reviewed with the patient, consent was obtained in the preoperative area, and the operative eye was marked with a surgical pen. In the preoperative area, a pledget was used to dilate the pupil consisting of a mixture of phenylephrine 10%, cyclopentolate 2%, moxifloxacin 0.5%, and bupivacaine 0.75%. The patient was taken to the operating room, where a time-out was performed, and the patient was placed under monitored anesthesia care. Topical tetracaine was used for anesthesia. The operative eye was prepped and draped for ophthalmic surgery, and the microscope was brought into position and focussed. A paracentesis incision was made, followed by injection of preservative-free 1% lidocaine into the anterior chamber, followed by injection of Viscoat into the anterior chamber. A microkeratome blade was used to make a corneal limbal incision temporarily. A cystotome was used to make the beginning of the capsulorrhexis, which was carried around 360 degrees in a curvilinear fashion using Utrata forceps. A Vazquez cannula with BSS was used to hydrodissect and hydrodelineate the nucleus. The nucleus was removed in a divide and conquer manner using phacoemulsification. Irrigation and aspiration were used to remove the remaining cortical material. Provisc was used to inflate the capsular bag, and a pre-loaded Jose [id number] 19.5 diopter lens, serial number [id number] was injected into the capsular bag. A Sinskey hook was used to position and center the lens. Next, irrigation and aspiration was used to remove any remaining viscoelastic and cortical material from the anterior chamber. BSS on a cannula was used to inflate the anterior chamber and hydrate the wound. The wound was checked and found to be watertight. 1 mg of Moxifloxacin was injected into the anterior chamber. Drapes were removed and the eye was cleaned. A drop of brimonidine 0.15% and a drop of TobraDex was placed. The eye was shielded, and the patient was taken to the recovery room in stable condition. /[id number] RONNI/SHANDA CC: LEONEL FRITZ MD
== END 2019-10-20 09:49 | disposition home or self-care (01) ==
LOC: FB.SDS 06:28
PROVIDERS: ATTEND Ophthalmology
DX: E11.36 Type 2 diabetes mellitus with diabetic cataract (principal); H25.813 Combined forms of age-related cataract, bilateral; H02.88B Meibomian gland dysfunction left eye, upper and lower eyelids; H02.88A Meibomian gland dysfunction right eye, upper and lower eyelids; H11.001 Unspecified pterygium of right eye; H04.123 Dry eye syndrome of bilateral lacrimal glands; H52.03 Hypermetropia, bilateral; H35.363 Drusen (degenerative) of macula, bilateral; I10 Essential (primary) hypertension; E78.00 Pure hypercholesterolemia, unspecified; E66.9 Obesity, unspecified; J44.9 Chronic obstructive pulmonary disease, unspecified; G47.33 Obstructive sleep apnea (adult) (pediatric); Z68.36 Body mass index [BMI] 36.0-36.9, adult; Z99.89 Dependence on other enabling machines and devices; Z87.891 Personal history of nicotine dependence; Z79.82 Long term (current) use of aspirin; Z79.84 Long term (current) use of oral hypoglycemic drugs; Z79.899 Other long term (current) drug therapy
CPT/HCPCS: 00142-QZ; 82962; A9270-GY; J2250; J3010; J7120

== ENCOUNTER 2022-10-10 11:34 | Emergency (ER) | payer MEDICARE, BC ==
[2022-10-10 11:56] LABS: ESTIMATED GFR 69 mL/min (>60)
[2022-10-10] MEDS ORDERED: Sodium Chloride 0.9% 10 ML Syringe FLUSH PRN (12:06)
[2022-10-10] MEDS ORDERED: Sodium Chloride 0.9% 1,000 ML IV SCH (12:30)
[2022-10-10 12:53] LABS: CORONAVIRUS COVID-19 NAA NEGATIVE (NEGATIVE)
[2022-10-10 14:05] VITALS: BP 150/83; PULSE 98
== END 2022-10-10 14:00 | disposition home or self-care (01) ==
LOC: FB.ED 11:34
DX: J10.1 Influenza due to other identified influenza virus with other respiratory manifestations (principal); J44.9 Chronic obstructive pulmonary disease, unspecified; E78.00 Pure hypercholesterolemia, unspecified; I10 Essential (primary) hypertension; E11.9 Type 2 diabetes mellitus without complications; E66.9 Obesity, unspecified; Z68.34 Body mass index [BMI] 34.0-34.9, adult; Z79.82 Long term (current) use of aspirin; Z79.899 Other long term (current) drug therapy; Z79.84 Long term (current) use of oral hypoglycemic drugs; Z20.822 Contact with and (suspected) exposure to COVID-19
CPT/HCPCS: 0241U; 36415; 71045; 80053; 81001; 83605; 84484; 85025; 86140; 87086; 93005; 96360; 99284-25; J3490; J7030

== ENCOUNTER 2024-10-06 20:12 | Observation (INO) | payer MEDICARE, BC ==
[2024-10-06 20:38] LABS: BASOPHILS ABSOLUTE AUTO 0.1 x10-3/uL (0.0-0.3); BASOPHILS PERCENT AUTO 0.9 % (0.3-3.8); EOSINOPHILS ABSOLUTE AUTO 0.1 x10-3/uL (0.0-0.6); EOSINOPHILS PERCENT AUTO 1.7 % (0.1-6.8); HEMATOCRIT 38.6 % (38.3-50.1); HEMOGLOBIN 12.8 g/dL (12.9-17.7); LYMPHOCYTES ABSOLUTE AUTO 1.3 x10-3/uL (0.5-4.5); LYMPHOCYTES PERCENT AUTO 14.2 % (15.8-45.3); MEAN CORPUSCULAR HEMOGLOBIN 28.9 pg (27.0-33.3); MEAN CORPUSCULAR HGB CONC 33.2 g/dL (28.7-35.3); MEAN CORPUSCULAR VOLUME 86.9 fL (80.8-98.7); MEAN PLATELET VOLUME 8.3 fL (6.7-11.0); MONOCYTES ABSOLUTE AUTO 0.7 x10-3/uL (0.0-1.2); MONOCYTES PERCENT AUTO 7.5 % (5.5-15.2); NEUTROPHILS ABSOLUTE AUTO 6.7 x10-3/uL (1.7-6.9); NEUTROPHILS PERCENT AUTO 75.7 % (40.3-71.8); PLATELET COUNT,PLT 215 x10(3)uL (117-477); RED BLOOD CELL COUNT 4.44 x10(6)uL (3.90-5.90); RED CELL DISTRIBUTION WIDTH 14.7 % (12.4-15.0); WHITE BLOOD CELL COUNT,WBC 8.9 x10-3/uL (3.2-10.1)
[2024-10-06] MEDS: Albuterol/Ipratropium 3.0-0.5 MG/3 ML Neb Soln NEB ONE (20:40)
[2024-10-06 20:44] LABS: BLOOD UREA NITROGEN,BUN 17 mg/dL (7-18); BUN/CREATININE RATIO 14.2 (9-20); CALCIUM 9.1 mg/dL (8.6-10.2); CARBON DIOXIDE,CO2 23 mmol/L (21-32); CHLORIDE,CL 103 mmol/L (100-110); CREATININE 1.2 mg/dL (0.70-1.30); ESTIMATED GFR 62 mL/min (>60); GLUCOSE RANDOM 192 mg/dL (80-116); SODIUM,NA 141 mmol/L (135-145)
[2024-10-06 20:44] LABS: BASE EXCESS VENOUS,POC -3 mmol/L (-2 - 3+); PCO2 VENOUS,POC 35 mmHg (41-51)
[2024-10-06 20:50] LABS: A/G RATIO 0.9; ALANINE AMINOTRANSFERASE,ALT 37 U/L (12-36); ALBUMIN 3.3 g/dL (3.2-4.6); ALKALINE PHOSPHATASE 89 IU/L (56-112); ASPARTATE AMNIOTRANSFERASE,AST 25 IU/L (5-25); BILIRUBIN TOTAL 0.5 mg/dL (0.1-1.3); PROTEIN TOTAL,TP 7.2 g/dL (6.0-8.0)
[2024-10-06 21:00] LABS: TROPONIN I 33.9 pg/mL (4.0-60.3)
[2024-10-06] MEDS: Iopamidol 755 Mg/ML 100 ML Bottle IV SCH (21:22)
[2024-10-06] MEDS ORDERED: Magnesium Hydroxide 400 MG/5 ML Susp 30 ML Cup PO PRN (22:43)
[2024-10-06] MEDS ORDERED: Acetaminophen 325 MG Tab PO PRN (22:43)
[2024-10-06] MEDS: Furosemide 40 MG/4 ML VIAL IVPUSH ONE (22:44)
[2024-10-07 08:08] LABS: TROPONIN I 208.7 pg/mL (4.0-60.3)
[2024-10-07] MEDS: Gabapentin 300 MG Cap PO SCH (09:31)
[2024-10-07] MEDS: atorvaSTATin 10 MG Tab PO SCH (09:31)
[2024-10-07] MEDS: Calcium Carbonate 500 MG Tablet PO SCH (09:31)
[2024-10-07] MEDS: Lisinopril 20 MG Tab PO SCH (09:32)
[2024-10-07] MEDS: Cholecalciferol (Vitamin D3) 25 MCG Tab PO SCH (09:32)
[2024-10-07] MEDS: Furosemide 40 MG Tab PO SCH (10:19)
[2024-10-07] MEDS: Aspirin 81 MG Tab.Chew PO ONE (10:19)
[2024-10-07] MEDS: glipiZIDE 5 MG Tab.ER PO SCH (10:27)
[2024-10-07 10:31] VITALS: BP 145/80; PULSE 85
[2024-10-09] MEDS ORDERED: metFORMIN 1,000 MG Tab PO SCH (21:00)
== END 2024-10-07 10:30 | disposition home or self-care (01) ==
LOC: FB.ED 20:12 → FB.MS 22:35
PROVIDERS: ADMIT Family Medicine; ATTEND Family Medicine
DX: I11.0 Hypertensive heart disease with heart failure (principal); I50.9 Heart failure, unspecified; I21.4 Non-ST elevation (NSTEMI) myocardial infarction; J44.9 Chronic obstructive pulmonary disease, unspecified; E11.9 Type 2 diabetes mellitus without complications; K21.9 Gastro-esophageal reflux disease without esophagitis; E78.00 Pure hypercholesterolemia, unspecified; Z87.891 Personal history of nicotine dependence; Z79.84 Long term (current) use of oral hypoglycemic drugs; Z79.899 Other long term (current) drug therapy
CPT/HCPCS: 36415; 71275; 80053; 83605; 83880; 84484; 85025; 87428-QW; 93005; 93010; 96374; 99222; 99239; 99285-25; A9270-GY; G0378; J1940; J7620; Q9967